=== PATIENT | female | born 2000 | race Two or more races ===

== ENCOUNTER 2024-02-05 14:10 | Emergency (ER) | payer SELFPAY ==
[~2024-02-05] VITALS: Ht 160 cm; Wt 75.9 kg
[2024-02-05] MEDS: SODIUM CHLORIDE 0.9% 3,000 ML IV ONE (14:30)
[2024-02-05 15:08] LABS: Urine Bacteria None Seen /hpf (None Seen)
[2024-02-05 15:18] LABS: Urine Blood Negative /uL (Negative); Urine Clarity Clear (Clear); Urine Color Light-Yellow (Yellow); Urine Protein, UAD Negative (Negative); Urine Specific Gravity 1.016 (1.001-1.035); Urine Urobilinogen Normal (Negative); Urine WBC 1 /hpf (0 - 5)
[2024-02-05 15:30] VITALS: PULSE 93; RESP 16; O2SAT 98
[2024-02-05 15:31] LABS: Amphetamine Screen, Urine Neg (NEGATIVE)
[2024-02-05 15:32] LABS: Barbiturate Scree,Urine Neg (NEGATIVE); Benzodiazephine Screen, Urine Neg (NEGATIVE); Cannabinoid Screen, Urine Pos (NEGATIVE); Cocaine Screen, Urine Neg (NEGATIVE); Opiate Scree,Urine Neg (NEGATIVE); Phencyclidine Screen, Urine Neg (NEGATIVE)
[2024-02-05 15:45] LABS: Basophils # (auto) 0 10 ^3/uL (0-0.2); Basophils % (auto) 0.7 % (0.0-2.0); Eosinophils # (auto) 0.1 10 ^3/uL (0-0.8); Eosinophils % (auto) 1.5 % (0.0-7.0); Hematocrit 34.7 % (36.0-46.0); Hemoglobin 11.6 g/dL (12.2-16.2); Lymphocytes # (auto) 1.6 10 ^3/uL (0.4-5.4); Lymphocytes % (auto) 22.9 % (10.0-50.0); Mean Corpuscular Hemoglobin 29.3 pg (28.0-32.0); Mean Corpuscular Hgb Conc. 33.5 g/dL (32.0-36.0); Mean Corpuscular Volume 87.5 fL (80.0-100.0); Monocytes # (auto) 0.5 10 ^3/uL (0-1.3); Monocytes % (auto) 7.6 % (0.0-12.0); Neutrophils # (auto) 4.8 10 ^3/uL (1.6-8.6); Neutrophils % (auto) 67.3 % (37.0-80.0); Red Blood Cells 3.97 10^6/uL (4.0-5.20); Red Cell Distribution Width 15.5 % (11.8-14.3); White Blood Cell 7.1 10^3/uL (4.4-10.8)
[2024-02-05] MEDS: ACTIVATED CHARCOAL 50 GM/240 ML SOL PO ONE (15:57)
[2024-02-05 16:03] LABS: Acetaminophen < 2.0 UG/ML (10.0-20.0); Alanine Aminotransferase 19 U/L (7-40); Alkaline Phosphatase 136 U/L (46-116); Anion Gap 4 (5-15); Aspartate Aminotransferase 35 U/L (13-40); BUN/Creatinine Ratio 5.6 (10.0-20.0); Bilirubin, Total 0.3 mg/dL (0.2-1.0); Blood Urea Nitrogen 5 mg/dL (9-23); Calcium 8.9 mg/dL (8.7-10.4); Carbon Dioxide 27 mmol/L (20-30); Chloride 107 mmol/L (98-107); Glucose 110 mg/dL (74-106); Potassium 3.8 mmol/L (3.5-5.1); Sodium 138 mmol/L (136-145); Total Protein 6.7 g/dL (5.7-8.2)
[2024-02-05 16:14] LABS: Salicylate < 3.0 mg/dL (2.8-20.0)
[2024-02-05] MEDS: LORazepam 2MG/ML-1ML VIAL IM ONE (19:59)
[2024-02-05] MEDS: diphenhdrAMINE HCL 50 MG/1 ML VL IV ONE (20:00)
[2024-02-05] MEDS: HALOPERIDOL LACTATE 5 MG/ML INJ VIAL IM ONE (20:00)
[2024-02-06] MEDS ORDERED: MAALOX PLUS or MAALOX 30 ML PO ONE (05:30)
[2024-02-06] MEDS: DONNATAL 5ml ORAL Elix (BELLADONNA ALK-PHENOBARB) PO ONE (05:39)
[2024-02-06] MEDS: FAMOTIDINE (10MG/ML) 2ML VL IV ONE (05:39)
[2024-02-06] MEDS: MAALOX PLUS or MAALOX 30 ML PO ONE ×2 (05:40→09:59)
[2024-02-06] MEDS: LIDOCAINE VISCOUS 2% 15ML UD PO ONE (05:45)
[2024-02-06 07:36] VITALS: RESP 16; O2SAT 96
[2024-02-06] MEDS: diphenhdrAMINE HCL 25 MG CAP PO ONE (12:57)
[2024-02-06 19:30] VITALS: BP 120/84; PULSE 80; RESP 20; O2SAT 97
[2024-02-06] MEDS: HALOPERIDOL LACTATE 5 MG/ML INJ VIAL IM ONE (20:15)
== END 2024-02-07 08:40 | disposition left against medical advice (07) ==
LOC: EDBD 14:10 → ER 14:10
DX: T43.592A Poisoning by other antipsychotics and neuroleptics, intentional self-harm, initial encounter (principal); R10.2 Pelvic and perineal pain; R45.851 Suicidal ideations; F41.9 Anxiety disorder, unspecified; F32.9 Major depressive disorder, single episode, unspecified; F17.210 Nicotine dependence, cigarettes, uncomplicated; F12.10 Cannabis abuse, uncomplicated; Y92.9 Unspecified place or not applicable
CPT/HCPCS: 36415; 80053; 80307; 80320; 80329; 81001; 83605; 84702; 85025; 93005; 96361; 96372; 96374; 96375; 99285; J1200; J1630; J2060; J3490; J7030